=== PATIENT | female | born 1970 | race Hispanic/Latino ===

== ENCOUNTER 2022-11-16 15:38 | Outpatient (CLI) | payer SELFPAY | END 2022-11-16 15:39 | disposition home or self-care (01) | LOC: RAD 15:38 | PROVIDERS: ATTEND Thoracic Surgery (Cardiothoracic Vascular Surgery) | DX: J86.9 Pyothorax without fistula (principal); J18.9 Pneumonia, unspecified organism; J98.4 Other disorders of lung | CPT/HCPCS: 71046 ==